=== PATIENT | female | born 1960 | race Caucasian/White ===

== ENCOUNTER → 2017-02-13 | Outpatient (CLI) | payer OTHER | LOC: HYPER 07:33 | DX: T81.89XA Other complications of procedures, not elsewhere classified, initial encounter (principal); R91.1 Solitary pulmonary nodule; Z87.891 Personal history of nicotine dependence; Z72.89 Other problems related to lifestyle; Y83.8 Other surgical procedures as the cause of abnormal reaction of the patient, or of later complication, without mention of misadventure at the time of the procedure; Y92.89 Other specified places as the place of occurrence of the external cause ==

== ENCOUNTER → 2017-02-13 | Outpatient (CLI) | payer OTHER ==
--- NOTE | ~2017-02-13 | EKG ---
[place] [address] [facility] [place] [address] ELECTROCARDIOGRAM REPORT Name: SANGITA SUN Room #: [facility]#: [id number] Admission: 02/13/17 Attend Phys: Riley Keith MD Discharge: Date of : 64 Report #: [id number] THIS REPORT FOR: //name// [facility] Test Date: 2017-02-13 Test Time: 12:03:06 Pat Name: SANGITA SUN Department: Room: Gender: F Pmp Certified Project Manager: SELVIN : 1960 Requested By: Riley Keith Order Number: [id number] MD: Noah Guy Measurements Intervals [place] Rate: 66 P: 148 RI: 123 QRS: 146 QRSD: 85 T: 138 QT: 389 QTc: 408 Interpretive Statements Limb lead reversal; incomplete tracing Sinus or ectopic atrial rhythm Lead(s) II were not used for morphology analysis No previous ECG available for comparison Electronically Signed On 02-14-2017 8:48:11 CDT by Noah Guy [email or web address] <ELECTRONICALLY SIGNED> By: Noah Guy MD, [facility] 02/14/17 0848 1203 1203 Noah Gyu MD, [facility] /EPI
== END ==
LOC: RAD 11:39
DX: Z01.818 Encounter for other preprocedural examination (principal); S82.872S Displaced pilon fracture of left tibia, sequela; T81.89XA Other complications of procedures, not elsewhere classified, initial encounter; X58.XXXS Exposure to other specified factors, sequela

== ENCOUNTER → 2017-02-13 | Outpatient (CLI) | payer OTHER | LOC: CAT 15:42 | DX: J98.11 Atelectasis (principal); R91.1 Solitary pulmonary nodule ==

== ENCOUNTER → 2017-02-15 | Outpatient (CLI) | payer OTHER | LOC: PET 10:51 | DX: R91.1 Solitary pulmonary nodule (principal) ==

== ENCOUNTER 2017-02-24 05:30 | Inpatient (IN) | payer OTHER ==
[~2017-02-24] VITALS: Ht 167.6 cm; Wt 76.1 kg
--- NOTE | ~2017-02-24 | HC ---
[facility] [place] [address] CONSULTATION Name: SANGITA SUN Room #: 207-P [facility] IN M.R.#: [id number] Admission: 02/24/17 Attend Phys: Jordin Cavanaugh MD Discharge: 03/01/17 Date of : 64 Report #: [id number] THIS REPORT FOR: //name// CC: ADAM Rojas MD DATE OF SERVICE: 02/27/2017 REASON FOR CONSULTATION: Probable left lung cancer. HISTORY OF PRESENT ILLNESS: The patient is a 56-year-old female originally from [place] who grew up in [place], who has been in the [place] recently for about the last 8 years. She and her live over slightly [place] of the [facility] and [facility]. The patient had been evaluated for possible hyperbaric therapy because of poorly healing left lower leg fracture, was found to have a lung lesion. The CAT scan showed the same lesion. She has now undergone a thoracotomy about 3 days ago and the results are pending. The preliminary from verbal which may be the third, this may be a nonsmall cell carcinoma, but that is very questionable at this time in terms of reliability. Also we do not know if any lymph nodes are involved. Other than that, the patient has been feeling pretty good purely. Before surgery, she had denied any unusual fevers, chills, nausea, vomiting, arm or leg swelling, except related to her left lower leg that was not healing very well. She had undergone an open reduction and internal fixation on January 16 and has been having trouble healing since that time. The left upper lobe mass was found and the patient was hospitalized for video-assisted thoracoscopy which resected the left upper lobe cancer. The rest of the scan did not show any other disease. ALLERGIES: None known. Medications: Medications prior to admission had really been none. Medications at this time in the hospital include docusate 100 daily, Lovenox 40 mg at bedtime, ceftriaxone 1 gram q.24, famotidine 20 mg IV b.i.d., promethazine q.4h. IV push without bolus, hydrocodone p.r.n., fentanyl p.r.n., ipratropium/albuterol one unit respiratory therapy q.6, Zofran p.r.n., nicardipine drip as needed. SOCIAL HISTORY: She stopped smoking about 3 years ago. She drinks wine, prior to this was maybe 3 beverages per week[address] No street drugs. FAMILY HISTORY: Mother had lung cancer at age 90. She seems to refer that her [address] [place] [address] CONSULTATION Name: SANGITA SUN Room #: 207-P [facility] IN M.R.#: [id number] Admission: 02/24/17 Attend Phys: Jordin Cavanaugh MD Discharge: 03/01/17 Date of : 64 Report #: [id number] father is alive. Two brothers, two sisters, no specific illnesses. One son, one daughter. The daughter has thyroid issues. The patient works as an interior decorator paperhanging. Works for herself. PAST MEDICAL HISTORY: Related to really nothing else. PAST SURGICAL HISTORY: She had open reduction and internal fixation left tibia fracture 01/16/2017. Also, tonsillectomy, note that she also had a postop wound infection if I understand it right. Left VAT/wedge resection of the left upper lobe mass, left thoracotomy, left upper lobectomy and thoracic lymphadenectomy. PHYSICAL EXAMINATION: GENERAL: The patient appears her stated age. VITAL SIGNS: Height is 5 feet 6 inches, 167.6 cm, weight 160.4 pounds or 72.76 kilograms. MOOD: The patient is alert and pleasant, though slightly groggy from not sleeping well last night. NEUROLOGIC: She is moving all extremities. Face is symmetrical. Does have the fiberglass type cast on her left leg. HEART: Regular rate. LUNGS: Clear, symmetric expansion, slight cough at deep inspiration. ABDOMEN: Slightly obese. No organomegaly. Nontender. SKIN: Without unusual ecchymosis. LABORATORY DATA: Here has had normal electrolytes, normal liver function tests. Hemoglobin on admission was 13.6, white count 8.3, MCV 89.4, platelets 349. Radiologic studies previous to this included a PET CT on February 15 from [facility] that showed spiculated nodules in superolateral left upper lobe measuring 2 x 1.5 cm. SUV is 3.5. No hilar or mediastinal adenopathy identified. No other lung lesions noted. Scans of the abdomen and pelvis showed normal liver, splenic renal activity. Bladder activity is normal. Scattered nonspecific bowel activity, no bony metastatic disease seen. CT chest on February 13 had seen a 1.6 x 1.6 spiculated nodule, left upper lobe. Scapula was covering the posterolateral access. ASSESSMENT AND PLAN: 1. Left upper lobe spiculated mass worrisome for nonsmall cell lung cancer, now removed at surgery, await path report addendum: path adenocarcinoma, 2.1cm, (AJCC 7) pT1bN0, Stage 1A, would not suggest adjuvant chemo or radiation therapy, would suggest surveillance per NCCN guiedlines 2. Tobaccoism, stopped smoking 3 years ago, continue monitoring. We will also need low dose CAT scan screening afterwards. [facility] [place] [address] CONSULTATION Name: SANGITA SUN Room #: 207-P [facility] IN M.R.#: [id number] Admission: 02/24/17 Attend Phys: Jordin Cavanaugh MD Discharge: 03/01/17 Date of : 64 Report #: [id number] 3. Open reduction and internal fixation of left leg. We will defer therapy to Dr. Figueroa and also Dr. Riley Keith. We will follow with you. <ELECTRONICALLY SIGNED> By: Casey Ernst MD 03/02/17 0724 0755 1122 Casey Ernst MD /nt
--- NOTE | ~2017-02-24 | HC ---
[facility] [place] [address] CONSULTATION Name: SANGITA SUN Room #: 207-P [facility] IN ..#: [id number] Admission: 02/24/17 Attend Phys: Jordin Cavanaugh MD Discharge: Date of : 64 Report #: [id number] THIS REPORT FOR: //name// CC: Gilles Cavanaugh DATE OF SERVICE: 02/26/2017 REASON FOR CONSULTATION: Nonhealing surgical wound of left lower leg status post open reduction and internal fixation of fracture with subsequent wound infection. The patient now hospitalized after left upper lobectomy. HISTORY OF PRESENT ILLNESS: The patient is a very pleasant 56-year-old patient of Dr. Riley Keith who was a cigarette smoker up until 3 years ago. The patient suffered a fracture of her left tibia ____ and underwent open reduction and internal fixation on 01/16. Her postoperative course was complicated by a wound infection and disruption of the wound and the patient was treated in wound care at [facility] by Dr. Riley Keith. Hyperbaric oxygen therapy was being evaluated for care of her nonhealing surgical orthopedic wound. In the process of that workup, a left upper lobe mass was found and discovered to be lung cancer. The patient is now hospitalized after left VAT, wedge resection of left upper lobe lung mass with left thoracotomy and left upper lobectomy and thoracic lymphadenectomy. She is postoperative day #1. Her left leg wound is in a cast with an anterior viewing window for the wound and Wound Care is consulted to care for her wound while in the hospital and to arrange for wound care followup afterwards. ALLERGIES: No known drug allergies. MEDICATIONS: Include Colace, albuterol, Lovenox, ceftriaxone, Toradol, Pepcid, promethazine, hydrocodone, Zofran, Reglan and Benadryl. PAST MEDICAL HISTORY: History of cigarette smoking. She stopped 3 years ago. No significant medical illness. PAST SURGICAL HISTORY: Open reduction and internal fixation of left tibia fracture, 01/16/2017 with subsequent wound infection. REVIEW OF SYSTEMS: Noncontributory. PHYSICAL EXAMINATION: GENERAL: Shows a healthy-appearing middle-aged woman who is postoperative day #1 from thoracotomy, respirations are unlabored. ABDOMEN: Soft. EXTREMITIES: Examination of the extremities shows a cast on her left leg with an anterior viewing window. Lower leg is inspected. On the pretibial surface [address] [address] CONSULTATION Name: SANGITA SUN Room #: 207-P [facility] IN [facility]#: [id number] Admission: 02/24/17 Attend Phys: Jordin Cavanaugh MD Discharge: Date of : 64 Report #: [id number] of the left lower leg above the ankle, there is a complex stellate-shaped dry eschar which is approximately 6 cm in length and 3.5 cm in width. This is a dry crusted eschar with no redness, no purulence, no evidence of drainage. Dense dark eschar is tightly adherent with no evidence of separation. Edema is minimal. There is no open wound. IMPRESSION AND PLAN: 1. History of lung cancer of left upper lobe, postoperative day #1, thoracotomy and lobectomy. 2. History of cigarette smoking, quit 3 years ago. 3. Non-healing surgical wound of left lower leg, status post tibia fracture with open reduction and internal fixation complicated by wound infection and wound disruption. The wound now appears stable with a dry eschar. PLAN: Keep the left leg in a cast, continue to observe the wound with Betadine paint daily. The patient will follow up in Wound Care, Dr. Riley Keith at [facility] after discharge. <ELECTRONICALLY SIGNED> By: Erich Flores MD 02/28/17 0909 1334 1626 Erich Flores MD /nt
--- NOTE | ~2017-02-24 | HC ---
[facility] [place] [address] CONSULTATION Name: SANGITA SUN Room #: 207-P [facility] IN .R.#: [id number] Admission: 02/24/17 Attend Phys: Jordin Cavanaugh MD Discharge: Date of : 64 Report #: [id number] THIS REPORT FOR: //name// CC: Gilles Cavanaugh DATE OF SERVICE: 02/28/2017 HISTORY OF PRESENT ILLNESS: The patient is a 56-year-old white female who had a fall a couple of weeks ago with the left ankle fracture, underwent open reduction and internal fixation. She was noted to have superficial skin necrosis and was being evaluated for hyperbaric oxygen treatment. During workup, chest x-ray revealed a left upper lobe lung mass. She has been admitted now, has undergone left thoracotomy with resection of the mass and a left upper lobectomy, February 24. She was noted to have nonsmall cell lung CA with final path pending. She has the left lower extremity which is casted with the left lower extremity fracture with delayed wound healing and previous infection. She is nonweightbearing on that left lower extremity. We are seeing her in rehabilitation medicine consultation. PAST MEDICAL HISTORY: Delineated above. HABITS: She is a past smoker. MEDICATIONS: Please see the full medication listing. SOCIAL HISTORY: She lives in a house with her , 5 steps in and then another 15 steps to the up upstairs bedroom. She can stay on around floor and they are planning on getting a hospital bed. There are adult children that are involved. The family notes that there should be someone there with the patient at all times. Premorbidly, she had been utilizing a walker after the prior ankle fracture. REVIEW OF SYSTEMS: Did not offer any current complaints of chest pain, shortness of breath or abdominal discomfort. PHYSICAL EXAMINATION: GENERAL: A 56-year-old white female in no obvious distress. VITAL SIGNS: Last recorded temperature is 98.4, pulse 108, respirations 16, blood pressure 188/74. The patient is alert, pleasant, oriented. HEENT: Appeared to be benign. NEUROLOGIC: Cranial nerves are grossly intact. Facies are symmetric. She has functional range of motion of the right upper and left upper extremity. ____ with that left upper extremity some with the surgical site. Strength appears full right upper extremity and no obvious focal weakness of the left upper extremity. Lower extremities, she has good range of motion and strength of the [address] [address] CONSULTATION Name: SANGITA SUN Room #: 207-P [facility] IN [facility]#: [id number] Admission: 02/24/17 Attend Phys: Jordin Cavanaugh MD Discharge: Date of : 64 Report #: [id number] right lower extremity. Left lower extremity reveals the short leg cast. There is a cut out window over the anterior ankle where the wound is located. She is able to wiggle her toes. Proximal strength is at least 4- to 4/5. She is contact guard for sit to stand transfers. Gait 5 feet min assist with a front-wheeled walker. ASSESSMENT: A 56-year-old white female with the following problem list: 1. Left upper lobe lung mass, status post thoracotomy with left upper lobectomy, February 24. 2. Left ankle fracture status post open reduction and internal fixation with delayed wound feeling and previous infection. 3. Superficial skin necrosis. 4. Past tobacco usage. 5. Multiple steps into the home. PLAN: Therapies to further work with her on functional mobility and ADLs and on steps. We will need to work further on steps and problem solving as far as getting her up those steps. We need to work on appropriate equipment issues. Would anticipate she should be able to return back home over the next day or two depending upon how the training goes and appropriate equipment issues. Therapies to continue to follow. Case management is involved. Discussed with the patient and her sister and daughter. Thank you for asking us to assist in this patient's care. By: 1141 1211 Qasim Powell MD /nt
--- NOTE | ~2017-02-24 | EKG ---
[address] [address] ELECTROCARDIOGRAM REPORT Name: SANGITA SUN Room #: 207-P ADM IN M.R.#: [id number] Admission: 02/24/17 Attend Phys: Jordin Cavanaugh MD Discharge: Date of : 64 Report #: [id number] THIS REPORT FOR: //name// [facility] Test Date: 2017-02-26 Test Time: 07:23:41 Pat Name: SANGITA SUN Department: Room: 207 P Gender: F Operator Assistant I Cementing: KEMAR : 1960 Requested By: Diamond [place] Order Number: [id number] MD: Ramo Lara Measurements Intervals [place] Rate: 79 P: 44 NH: 125 QRS: 51 QRSD: 86 T: 10 QT: 374 QTc: 429 Interpretive Statements Sinus rhythm Compared to ECG 02/13/2017 12:03:06 Ectopic atrial rhythm no longer present Electronically Signed On 02-26-2017 22:20:05 CDT by Ramo Lara [email or web address] <ELECTRONICALLY SIGNED> By: Ramo Lara MD 02/26/17 2220 2 2 Ramo Lara MD /SHANTE
--- NOTE | ~2017-02-24 | O ---
[facility] [place] [address] OPERATIVE REPORT Name: SANGITA SUN Room #: 207-P [facility] IN M.R.#: [id number] Admission: 02/24/17 Attend Phys: Jordin Cavanaugh MD Discharge: 03/01/17 Date of : 64 Report #: [id number] THIS REPORT FOR: //name// CC: Gilles Rojas MD DATE OF SERVICE: 02/24/2017 PREOPERATIVE DIAGNOSIS: Left upper lobe lung mass, 2 cm. POSTOPERATIVE DIAGNOSIS: Left upper lobe nonsmall cell carcinoma. FINAL DIAGNOSIS: Left upper lobe nonsmall cell carcinoma. OPERATIVE PROCEDURE PERFORMED: 1. Left video-assisted thoracoscopy with wedge resection of left upper lobe mass. 2. Left thoracotomy with left upper lobectomy. 3. Thoracic lymphadenectomy. SURGEON: Jordin Cavanaugh MD. ENROUTE CONTROLLER: Brittaney Varela. ANESTHESIA: General. OPERATIVE INDICATIONS: The patient is a 56-year-old female who is a former smoker. The patient was recently being evaluated for hyperbaric oxygen therapy for a poorly healing wound at the site of an ankle fracture. The patient underwent a chest x-ray, which demonstrated an abnormality in the left upper lobe. Subsequent CT scan demonstrated a 2 cm nodule that was spiculated in the left upper lobe without evidence of mediastinal adenopathy. PET imaging showed that the lesion was PET added with a maximum SUV of 3.5. There is no evidence of increased uptake elsewhere on the PET scan. The patient thus brought to the operating room now and admitted to the hospital for further evaluation and management of the left upper lobe mass. OPERATIVE SUMMARY: The patient was brought to the operating room and placed on the OR table in supine position. After anesthesia was induced via the general endotracheal route with a dual lumen endotracheal tube, the patient was then placed in the right lateral decubitus position and prepped and draped in sterile fashion with chlorhexidine. I made 3 small incisions laterally on the left chest wall. We introduced a 5 mm thoracoscope. There was no evidence of involvement of the pleura of the left upper lobe mass and it took a little [facility] [address] [place] [address] OPERATIVE REPORT Name: SANGITA SUN Room #: 207-P [facility] IN M.R.#: [id number] Admission: 02/24/17 Attend Phys: Jordin Cavanaugh MD Discharge: 03/01/17 Date of : 64 Report #: [id number] searching in order to find the mass. Once we did, we removed it by using an endoscopic stapling device. The mass was sent to pathology and evidence was that of a nonsmall cell carcinoma. Next, we then performed a limited posterolateral thoracotomy incision. We entered the pleural space through the fifth intercostal space. The fissure was complete. We mobilized the hilum anteriorly, superiorly, and posteriorly. Lymph nodes in the levels 5, 6 and 7 were dissected and sent to pathology. Prior to this, we first dissected free the pulmonary venous return to the left upper lobe and doubly ligated and divided it with the branches with silk suture. Next, we dissected in the fissure. We dissected free the pulmonary artery blood flow to the left upper lobe. We doubly ligated and divided it with silk sutures as well. The final arterial branch was divided with Endo-SOBIA stapler with a vascular load. Finally, we transected the bronchus to the left upper lobe using the Endo-SOBIA stapler. This was used for the 4.8 mm load. This stump was oversewed it with a 4-0 Vicryl suture. The inferior pulmonary vein was mobilized. The pleural space was irrigated with warm saline solution. We then placed two 28-Thai chest tubes, 1 right angle over the diaphragm and 1 straight tube up in the apex. They were brought out through separate stab incisions. The lung was fully reinflated. The ribs were reapproximated with #1 PDS. The muscular layers were closed with a #1 Vicryl suture, subcutaneous fascia with a 2-0 Vicryl suture and the skin with 4-0 Monocryl. Frozen section analysis did demonstrate evidence of nonsmall cell carcinoma of the mass. The bronchial margin showed no evidence of tumor present. All lymph nodes were sent for final frozen section analysis. <ELECTRONICALLY SIGNED> By: Jordin Cavanaugh MD 03/02/17 1826 1252 1341 Jordin Cavanaugh MD /nt
--- NOTE | ~2017-02-24 | S ---
[facility] [place] [address] SURGICAL PATH RPT PROCEDURE Name: LEEANN SUN Room #: 207-P ADM IN M.R.#: [id number] Admission: 02/24/17 Date of : 64 Discharge: Report #: [id number] Path Case #: [id number] PATHOLOGY REPORT COLLECTION DATE: 02/24/2017 RECEIVED DATE: 02/24/2017 SUBMITTING PHYS: Dr. Jordin Cavanaugh OTHER PHYS: Dr. Gilles Salinas SPECIMEN(S) RECEIVED: A.Left upper lobe wedge biopsy B.Left five node C.Left 11 nodes D.Left upper lobe E.Lynph node level 6 left F.Lymph node level 7 left * * * * * * * * * * * * FINAL DIAGNOSIS: A. 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 B. "Left 5 node", excision: - Lymph node with no evidence of metastatic carcinoma (1 node). C. "Left 11 nodes", dissection: - Lymph nodes with no evidence of metastatic carcinoma (5 nodes). D. "Left upper lobe", lobectomy: - Alveolated lung tissue with reactive changes and vascular congestion; bronchial margin and vascular margin free of dysplasia and carcinoma. - Lymph node, hilar, with no evidence of metastatic carcinoma (1 node). E. "Lymph node, level 6 left", dissection: - Lymph nodes with no evidence of metastatic carcinoma (2 nodes). F. "Lymph node level 7 left", dissection: - Lymph nodes with no evidence of metastatic carcinoma (6 nodes). (CLW:noreen; 02/28/2017) SYNOPTIC CANCER STAGING REPORT SPECIMEN Specimen: Lobe(s) of lung Upper lobe Procedure: Lobectomy Specimen Laterality: Left TUMOR Primary Tumor Site: Upper lobe [address] [address] SURGICAL PATH RPT PROCEDURE Name: CORINNELEEANN Kowalski Room #: 207-P [facility] IN [facility]#: [id number] Admission: 02/24/17 Date of : 64 Discharge: Report #: [id number] Path Case #: [id number] Histologic Type: Adenocarcinoma Histologic Grade: G2: Moderately differentiated Tumor Size: Greatest dimension (cm): 2.1 Tumor Focality: Unifocal Tumor Extent Visceral Pleura Invasion: Cannot be determined: disrupted Tumor Extension: Not identified Accessory Tumor Findings Lymph-Vascular Invasion: Not identified MARGINS All margins uninvolved by invasive carcinoma Distance of Invasive Carcinoma from Closest Margin: At least (mm): 60 Margin Closest to Invasive Carcinoma: Specify margin: bronchial Bronchial Margin: Uninvolved by invasive carcinoma and carcinoma in situ Vascular Margin: Uninvolved by invasive carcinoma Parenchymal Margin: Not applicable LYMPH NODES Number of Lymph Nodes Examined: Specify number: 15 Lymph Node Involvement: No nodes involved STAGE (PTNM) Primary Tumor (pT): pT1b: Tumor greater than 2 cm, but 3 cm or less in greatest dimension, surrounded by lung or visceral pleura, without bronchoscopic evidence of invasion more proximal than the lobar bronchus (i.e., not in the main bronchus) Regional Lymph Nodes (pN): pN0: No regional lymph node metastasis COMMENT Visceral plueral involvement cannot be acurately determined. Therefore, the pathological staging is pT1b without pleural involvement and pT2a with pleural involvement. Clinical / surgical correlation is required. COMMENT: A front office representative slide (block A1) is co-reviewed with Dr. Angie Jackson. Clinical and radiographic correlation is recommended. (CLW:noreen; 02/28/2017) PATHOLOGIST: Melony Caban M.D. REPORT ELECTRONICALLY SIGNED BY: Melony Caban M.D. DATE/TIME: 02/28/2017 20:56 * * * * * * * * * * * * GROSS PATHOLOGY: [address] [address] SURGICAL PATH RPT PROCEDURE Name: LEEANN SUN Room #: 207-P [facility] IN .R.#: [id number] Admission: 02/24/17 Date of : 64 Discharge: Report #: [id number] Path Case #: [id number] A. The first specimen is received fresh from the OR labeled "Leeann Sun, left upper lobe wedge biopsy." It consists of a wedge biopsy resection of lung measuring 5.3 x 2.2 x 1.2 cm. The pleural surface is pink-noonan and smooth with an area of disruption. Per Dr. Cavanaugh, the disruption happened intraoperatively. The staple line is removed and the specimen is serially sectioned to reveal a 2.0 x 1.5 x 1.2 cm noonan-white and focally black slightly firm irregular mass. The remaining lung is pink-noonan and spongy. A front office representative section is submitted for one frozen section. The frozen section is then submitted as A1. The remaining mass is entirely submitted as A2-A4, with A3 and A4 containing the disrupted pleural surface. (CLW:r; 02/27/2017) B. Received in formalin labeled "Leeann Paizsi, level 5 node" is a 1.1 x 0.6 x 0.4 cm noonan-brown possible lymph node. The specimen is submitted entirely in cassette B1. C. Received in formalin labeled "Leeann Corinne, level 11 nodes" is a specimen consisting of three portions of noonan-brown soft tissue, possibly consistent with lymph nodes, which range from 0.5 x 0.3 x 0.3 cm to 1.2 x 1.0 x 0.3 cm. The two smaller portions are submitted entirely without sectioning in cassette C1. The largest portion is serially sectioned and submitted in cassette C2. D. Received in formalin labeled "Leeann Sun, left upper lobe" is a 168 g, 19.2 x 10.5 x 2.5 cm lung lobectomy specimen. There are multiple staple lines located at the hilum. Additionally, there is a 10.2 cm long staple line along one aspect of the lung parenchyma. The staple line measures 6.0 cm away from the bronchial and vascular margins at its closest approach. The pleural surface is pink-noonan and smooth with a 0.3 x 0.2 x 0.1 cm clear cystic structure, which does not contain fluid. The staple lines at the hilum are removed, and the bronchioles are opened to reveal mucinous material, and no tumor identified. The staple line of the parenchyma is removed, and the deep tissue is pink-noonan and unremarkable without masses. The specimen is serially sectioned to reveal a dark red crepitant cut surface without masses identified. A 1.0 x 0.6 x 0.5 cm possible lymph node is identified at the hilum. Cuff Matcher sections of the specimen are submitted as follows: D1 bronchial and vascular margins D2 entire pleural cystic structure D3-D5 front office representative shave of the tissue just deep to the parenchymal staple line D6 additional front office representative lung parenchyma D7 lymph node, submitted entirely E. received in formalin labeled "Leeann Sun, lymph node level 6-left" is a 2.5 x 1.7 x 0.3 cm portion of pink-yellow fibroadipose tissue which is palpated to reveal two pink-noonan possible lymph nodes measuring 0.5 and 2.2 cm in greatest dimension. The smaller lymph node is bisected and submitted entirely in cassette E1. The larger lymph node is serially sectioned and submitted entirely in cassette [address] [address] SURGICAL PATH RPT PROCEDURE Name: LEEANN SUN Room #: 207-P ADM IN .R.#: [id number] Admission: 02/24/17 Date of : 64 Discharge: Report #: [id number] Path Case #: [id number] E2. F. received in formalin labeled "Leeann Sun, level VII lymph node left" are three portions of pink-noonan soft tissue which measure in aggregate 1.8 x 1.5 x 0.3 cm. The specimen is palpated to reveal seven campo-black anthracotic possible lymph nodes ranging from 0.3-1.1 cm in greatest dimension. The specimen is submitted entirely as follows: F1 four whole lymph nodes F2 whole lymph node F3 largest lymph node, serially sectioned [place] [place] 02/25/[place] FROZEN SECTION DIAGNOSIS: (Quintin Caban M.D.) "Left upper lobe wedge biopsy": - MALIGNANT / NON-SMALL CELL CARCINOMA. The case is discussed with Dr. Cavanaugh in the operating room, and a written report is placed in the patient's chart. (CLW:mgr; 02/27/2017) Testing performed by [facility] at [facility] [address] [place] [address] CLINICAL HISTORY: Lung mass left. INITIAL CPT CODE(S): A; 38847, 85238 B; 19838 C; 14779 D; 32018 E; 07327 F; 81577 Professional services performed by [facility] at [facility] [address] [place] [address] Technical services performed by [employer] at [address] [place] [address], [address] [address]. [facility] [place] [address] PHONE: [phone] DIRECTOR: Tadeo Laguna M.D. [address] [place] [address] SURGICAL PATH RPT PROCEDURE Name: LEEANN SUN Room #: 207-P [facility] IN M.R.#: [id number] Admission: 02/24/17 Date of : 64 Discharge: Report #: [id number] Path Case #: [id number] * * * END OF REPORT * * *
[2017-02-24 08:06] LABS: HEMATOCRIT 41.5 % (37.0-47.0); HEMOGLOBIN 13.6 gm/dL (12.0-15.0); MCH 29.2 pg (26.0-34.0); MCHC 32.7 g/dL (28.0-37.0); MCV 89.4 fL (80.0-100.0); RBC 4.64 mil/uL (4.20-5.00); RDW 14.1 % (10.5-14.5); WBC 8.3 thou/uL (4.0-11.0)
[2017-02-24 08:17] LABS: CALCIUM 9.7 mg/dL (8.5-10.1); CREATININE 0.9 mg/dL (0.6-1.0); POTASSIUM 4.3 mmol/L (3.5-5.1)
[2017-02-24 08:19] LABS: APTT 26.6 Seconds (24.5-32.8); PROTIME 10.6 Seconds (9.3-11.4)
[2017-02-24 08:21] LABS: URINE BILIRUBIN NEGATIVE (Negative); URINE BLOOD TRACE (Negative); URINE COLOR YELLOW; URINE GLUCOSE-RANDOM* NEGATIVE (Negative); URINE KETONES NEGATIVE (Negative); URINE NITRITE NEGATIVE (Negative); URINE PROTEIN (DIPSTICK) TRACE (Negative); URINE SPECIFIC GRAVITY 1.025 (1.003-1.035); URINE UROBILINOGEN 0.2 E.U./dl (0.2-1.0)
[2017-02-24 08:23] LABS: ALBUMIN 3.8 g/dL (3.4-5.0); TOTAL BILIRUBIN 0.4 mg/dL (<0.1-1.0); TOTAL PROTEIN 7.8 g/dL (6.4-8.2)
[2017-02-24 08:30] VITALS: BP 97/66
[2017-02-24 08:43] LABS: BACTERIA >30 Many /HPF (None Seen); CASTS None Seen /LPF (None Seen); CRYSTALS None Seen /LPF (None Seen); SQUAMOUS >10 Many /LPF (0-3); URINE RBC 0-2 Rare /HPF (0-2); URINE WBC >25 Many /HPF (0-5)
[2017-02-24 16:31] VITALS: BP 99/57
[2017-02-24 17:30] VITALS: BP 93/58
[2017-02-24 18:00] VITALS: BP 87/58
[2017-02-24 20:00] VITALS: BP 89/75
[2017-02-24 22:00] VITALS: BP 93/61
[2017-02-25] VITALS (10 sets, daily range): BP systolic 83–101; BP diastolic 44–68
[2017-02-25 03:16] LABS: GLYCOHEMOGLOBIN (HGB A1C) 5.6 % (4.8-5.6)
[2017-02-25 05:36] LABS: HEMATOCRIT 32.4 % (37.0-47.0); MCH 29.4 pg (26.0-34.0); MCHC 32.9 g/dL (28.0-37.0); MCV 89.3 fL (80.0-100.0); RBC 3.63 mil/uL (4.20-5.00); RDW 13.5 % (10.5-14.5); WBC 13.5 thou/uL (4.0-11.0)
[2017-02-25 05:38] LABS: HEMOGLOBIN 10.7 gm/dL (12.0-15.0)
[2017-02-25 05:50] LABS: CALCIUM 8.7 mg/dL (8.5-10.1); CREATININE 0.7 mg/dL (0.6-1.0); POTASSIUM 4.4 mmol/L (3.5-5.1)
[2017-02-26 05:11] VITALS: BP 98/63
[2017-02-26 06:06] LABS: HEMATOCRIT 30.9 % (37.0-47.0); HEMOGLOBIN 10.3 gm/dL (12.0-15.0); MCH 29.9 pg (26.0-34.0); MCHC 33.3 g/dL (28.0-37.0); MCV 89.8 fL (80.0-100.0); RBC 3.44 mil/uL (4.20-5.00); WBC 7.6 thou/uL (4.0-11.0)
[2017-02-26 06:27] LABS: ANION GAP 6 mmol/L (7-16); BUN 12 mg/dL (7-18); CALCIUM 8.6 mg/dL (8.5-10.1); CHLORIDE 105 mmol/L (98-107); CO2 30 mmol/L (21-32); CREATININE 0.8 mg/dL (0.6-1.0); GLUCOSE 101 mg/dL (74-106); POTASSIUM 4.1 mmol/L (3.5-5.1); SODIUM 141 mmol/L (136-145); TROPONIN-I < 0.04 ng/mL (<0.04-0.07)
[2017-02-26 07:10] VITALS: BP 96/61
[2017-02-26 12:01] VITALS: BP 101/65
[2017-02-26 15:30] VITALS: BP 93/59
[2017-02-26 19:53] VITALS: BP 99/67
[2017-02-26 23:28] VITALS: BP 106/64
[2017-02-27 03:06] VITALS: BP 99/59
[2017-02-27 07:39] VITALS: BP 98/57
[2017-02-27 11:56] VITALS: BP 100/62
[2017-02-27 16:38] VITALS: BP 95/61
[2017-02-27 20:50] VITALS: BP 106/67
[2017-02-28 04:49] VITALS: BP 98/65
[2017-02-28 08:04] VITALS: BP 188/74
[2017-02-28 11:38] VITALS: BP 110/72
[2017-02-28 16:58] VITALS: BP 116/79
[2017-02-28 19:50] VITALS: BP 122/80
[2017-03-01 04:05] VITALS: BP 97/60
[2017-03-01 04:05] LABS: CHOLESTEROL 142 mg/dL (<200); HDL CHOLESTEROL 37 mg/dL (>40); LDL CHOLESTEROL 78 mg/dL (<100); TC:HDL 3.8 Ratio (Not establshd); TRIGLYCERIDE 136 mg/dL (<150); VLDL 27 mg/dL (<40)
[2017-03-01 04:06] LABS: SERUM ASSESSMENT Clear
[2017-03-01] MEDS ORDERED: ENOXAPARIN40 MG/0.1 SUBQ (10:57)
[2017-03-01] MEDS ORDERED: PERCOCET 10-321 EACH PO (10:58)
[2017-03-01 11:33] VITALS: BP 97/60
[2017-03-01 12:00] VITALS: BP 97/60
== END 2017-03-01 15:10 | disposition home health service (06) | DRG 164 ==
LOC: TBA 05:30 → 2N 05:30 → PRE 15:40 → ICU 16:34 → 2N 02-25 14:11 → PRE 03-01 09:24 → 2N 03-01 15:10
PROVIDERS: Hospitalist; Nurse Practitioner; Nurse Practitioner Acute Care; Thoracic Surgery (Cardiothoracic Vascular Surgery)
PROC: 07B70ZZ Excision of Thorax Lymphatic, Open Approach (ICD-10-PCS; principal; 2017-02-24)
PROC: 0BBG0ZZ Excision of Left Upper Lung Lobe, Open Approach (ICD-10-PCS; principal; 2017-02-24)
DX: C34.12 Malignant neoplasm of upper lobe, left bronchus or lung (principal); J95.811 Postprocedural pneumothorax; Y83.8 Other surgical procedures as the cause of abnormal reaction of the patient, or of later complication, without mention of misadventure at the time of the procedure; Y82.8 Other medical devices associated with adverse incidents; R53.81 Other malaise; Z87.891 Personal history of nicotine dependence; Z87.81 Personal history of (healed) traumatic fracture; Z80.1 Family history of malignant neoplasm of trachea, bronchus and lung
CPT/HCPCS: 10078; 10081; 47405; 50010; 50101; 50386; 50417; 50455; 50497; 50555; 50739; 50740; 51301; 52265; 52301; 52303; 53312; 56524; 56525; 56526; 56527; 62110; 62900; 65020; 65040; 65043; 65075; 65105; 70005

== ENCOUNTER → 2017-03-09 | Outpatient (CLI) | payer OTHER ==
[~2017-03-09] MED LIST: ENOXAPARIN40 MG/0.1 SUBQ; PERCOCET 10-321 EACH PO
== END ==
LOC: HYPER 02-28 12:31
DX: T81.89XD Other complications of procedures, not elsewhere classified, subsequent encounter (principal); R91.1 Solitary pulmonary nodule; Z87.891 Personal history of nicotine dependence; Z72.89 Other problems related to lifestyle; Y83.8 Other surgical procedures as the cause of abnormal reaction of the patient, or of later complication, without mention of misadventure at the time of the procedure

== ENCOUNTER → 2017-03-22 | Outpatient (CLI) | payer OTHER | LOC: RAD 07:42 | DX: R07.9 Chest pain, unspecified (principal); Z90.2 Acquired absence of lung [part of] ==

== ENCOUNTER → 2017-03-29 | Outpatient (CLI) | payer OTHER | LOC: HYPER 06:43 | DX: T81.89XD Other complications of procedures, not elsewhere classified, subsequent encounter (principal); Z87.891 Personal history of nicotine dependence; Z72.89 Other problems related to lifestyle; Y83.8 Other surgical procedures as the cause of abnormal reaction of the patient, or of later complication, without mention of misadventure at the time of the procedure ==

== ENCOUNTER → 2017-04-12 | Outpatient (CLI) | payer OTHER | LOC: HYPER 07:07 | DX: T81.89XD Other complications of procedures, not elsewhere classified, subsequent encounter (principal); Z87.891 Personal history of nicotine dependence; Z72.89 Other problems related to lifestyle; Y83.8 Other surgical procedures as the cause of abnormal reaction of the patient, or of later complication, without mention of misadventure at the time of the procedure ==

== ENCOUNTER → 2017-06-19 | Outpatient (CLI) | payer OTHER | LOC: CAT 08:47 | DX: C34.12 Malignant neoplasm of upper lobe, left bronchus or lung (principal) ==

== ENCOUNTER → 2018-10-25 | Outpatient (CLI) | payer OTHER | LOC: HYPER 06:36 | DX: T81.31XD Disruption of external operation (surgical) wound, not elsewhere classified, subsequent encounter (principal); L97.521 Non-pressure chronic ulcer of other part of left foot limited to breakdown of skin; Z87.891 Personal history of nicotine dependence; Y83.8 Other surgical procedures as the cause of abnormal reaction of the patient, or of later complication, without mention of misadventure at the time of the procedure ==

== ENCOUNTER → 2018-11-01 | Outpatient (CLI) | payer OTHER | LOC: HYPER 06:47 | DX: T81.31XD Disruption of external operation (surgical) wound, not elsewhere classified, subsequent encounter (principal); L97.521 Non-pressure chronic ulcer of other part of left foot limited to breakdown of skin; Z87.891 Personal history of nicotine dependence; Y83.8 Other surgical procedures as the cause of abnormal reaction of the patient, or of later complication, without mention of misadventure at the time of the procedure ==